=== PATIENT | female | born 1980 | race Caucasian/White ===

== ENCOUNTER 2020-04-30 14:06 | Outpatient (REF) | payer OTHER, SELFPAY ==
[2020-05-01 04:17] LABS: Syphilis Screen Nonreactive (Nonreactive)
[2020-05-01 04:25] LABS: HIV AB/AG Nonreactive (Nonreactive); HIV Num 1 0.31 S/CO (0.00-0.99); ~HepC Num1 0.07 S/CO (0.00-0.79); ~Hepatitis C Antibody Nonreactive (Nonreactive)
[2020-05-01 04:30] LABS: HBsAGNum1 0.16 S/CO (0.00-0.99); Hepatitis B Surface Antigen Negative (Negative)
[2020-05-01 09:09] LABS: BV Int Neg Control Negative (Negative); BV Int Pos Control Positive (Positive)
[2020-05-02 21:32] LABS: C. trachomatis RNA TMA NOT DETECTED (NOT DETECTED); N. gonorrhoeae RNA TMA NOT DETECTED (NOT DETECTED)
[2020-05-07 02:32] LABS: HPV mRNA E6/E7 rflx Not Detected (Not Detected)
== END 2020-04-30 14:07 | disposition home or self-care (01) ==
LOC: HO.LAB 14:06
PROVIDERS: PCP Internal Medicine; Visit Provider Advanced Practice Midwife
DX: Z01.419 Encounter for gynecological examination (general) (routine) without abnormal findings (principal); Z20.2 Contact with and (suspected) exposure to infections with a predominantly sexual mode of transmission; K62.3 Rectal prolapse; Z78.9 Other specified health status
CPT/HCPCS: 36415; 81003; 86780; 86803; 87340; 87389; 87480; 87491; 87510; 87591; 87624; 87660; 88142

== ENCOUNTER 2020-05-01 08:27 | Outpatient (REF) | payer OTHER, SELFPAY | END 2020-05-01 08:28 | disposition home or self-care (01) | LOC: HO.LAB 08:27 | PROVIDERS: Visit Provider Advanced Practice Midwife | DX: Z13.89 Encounter for screening for other disorder (principal) ==

== ENCOUNTER → 2020-05-13 10:37 | Outpatient (BNVA) | payer OTHER, SELFPAY | PROVIDERS: PCP Internal Medicine; Visit Provider Advanced Practice Midwife ==

== ENCOUNTER 2020-05-28 09:45 | Outpatient (REF) | payer OTHER, SELFPAY ==
[2020-05-29 08:22] LABS: BV Int Neg Control Negative (Negative); BV Int Pos Control Positive (Positive)
== END 2020-05-28 09:46 | disposition home or self-care (01) ==
LOC: HO.LAB 09:45
PROVIDERS: PCP Internal Medicine; Visit Provider Advanced Practice Midwife
DX: R35.0 Frequency of micturition (principal); L40.9 Psoriasis, unspecified; N89.8 Other specified noninflammatory disorders of vagina; F17.210 Nicotine dependence, cigarettes, uncomplicated
CPT/HCPCS: 81001; 81003; 87210; 87480; 87510; 87660; 99212

== ENCOUNTER → 2020-08-08 14:02 | Outpatient (BNVA) | payer OTHER, SELFPAY | PROVIDERS: Visit Provider Surgery | DX: M62.08 Separation of muscle (nontraumatic), other site (principal); K62.0 Anal polyp | CPT/HCPCS: 99202 ==

== ENCOUNTER 2021-04-07 10:28 | Outpatient (REF) | payer OTHER, SELFPAY ==
--- NOTE | ~2021-04-07 | US_ITS ---
EXAMINATION: US THYROID CLINICAL INFORMATION: Thyroid disorder. Asymmetrical thyroid. Trouble swallowing. COMPARISON: None TECHNIQUE: Linear transducer grayscale and color Doppler examination with attention to the region of the thyroid. FINDINGS: SIZE: Measurements of the thyroid lobes and nodules are given in sagittal, anteroposterior and transverse dimensions respectively. Right Thyroid Lobe: 5.5 x 1.5 x 2.0 cm, volume 8.6 mL. Parenchyma: The gland echotexture is homogeneous. Thyroid vascularity is increased. Left Thyroid Lobe: 4.6 x 1.3 x 1.4 cm, volume 4.4 mL. Parenchyma: The gland echotexture is homogeneous. Thyroid vascularity is increased. Isthmus: 0.3 cm in maximum AP dimension. Estimated total number of nodules greater than or equal to 1 cm: 1. Dynamic Balancer Set Up Worker nodules are described as follows: 1. Location: Left lower pole. Size: 1.3 x 0.7 x 0.9 cm, volume 0.4 mL. Nodule characteristics: Composition: Solid/almost completely solid (2). Echogenicity: Cannot be determined (1). Shape: Not taller than wide (0). Margins: Smooth (0). Echogenic Foci: Punctate echogenic foci (3). ACR TI-RADS total points: 6 ACR TI-RADS category: 4 2. Location: Right mid pole. Size: 0.8 x 0.7 x 0.7 cm, volume 0.2 mL. Nodule characteristics: Composition: Mixed cystic and solid (1). Echogenicity: Hyperechoic (1). Shape: Not taller than wide (0). Margins: Smooth (0). Echogenic Foci: None (0). ACR TI-RADS total points: 2 ACR TI-RADS category: 2 3. Location: Right lower pole. Size: 0.8 x 0.7 x 0.6 cm, volume 0.2 mL. Nodule characteristics: Composition: Mixed cystic and solid (1). Echogenicity: Hyperechoic (1). Shape: Taller than wide (3). Margins: Smooth (0). Echogenic Foci: None (0). ACR TI-RADS total points: 5 ACR TI-RADS category: 4 4. Location: Right lower pole. Size: 0.8 x 0.5 x 0.8 cm, volume 0.2 mL. Nodule characteristics: Composition: Mixed cystic and solid (1). Echogenicity: Hyperechoic (1). Shape: Not taller than wide (0). Margins: Ill-defined (0). Echogenic Foci: Punctate echogenic foci (3). ACR TI-RADS total points: 5 ACR TI-RADS category: 4 NODES: No lymphadenopathy is seen in the tissue surrounding the thyroid gland. US/US thyroid IMPRESSION: Bilateral thyroid nodules. According to TI RADS criteria, ultrasound follow-up as detailed below recommended. Ultrasound-guided fine-needle aspiration, followup ultrasound, no further follow up. * TR1 (0 point) and TR 2 (2 points): No FNA or follow up * TR3 (3 points): FNA if more than or equal to 2.5 cm in maximum dimension, followup ultrasound in 1, 3 and 5 years if 1.5 to 2.4 cm in maximum dimension. * TR4 (4-6 points): FNA if more than or equal to 1.5 cm in maximum dimension, followup ultrasound in 1, 2, 3 and 5 years if 1 to 1.4 cm in maximum dimension. * TR5 (more than or equal to 7 points): FNA if more than or equal to 1 cm in maximum dimension, followup ultrasound every year for 5 years if 0.5 to 0.9 cm in maximum dimension. * TR3, TR4 or TR5 nodules that are below the size threshold for follow up receive no follow up.
== END 2021-04-07 10:29 | disposition home or self-care (01) ==
LOC: HO.US 10:28
PROVIDERS: PCP Internal Medicine; Visit Provider Internal Medicine
DX: E07.9 Disorder of thyroid, unspecified (principal)
CPT/HCPCS: 76536

== ENCOUNTER 2022-03-31 12:25 | Outpatient (REF) | payer OTHER, SELFPAY ==
[2022-04-01 05:31] LABS: CT PCR NOT DETECTED (Not Detect.); NG PCR NOT DETECTED (Not Detect.)
== END 2022-03-31 12:26 | disposition home or self-care (01) ==
LOC: HO.LNP 12:25
PROVIDERS: PCP Internal Medicine; Visit Provider Obstetrics & Gynecology
DX: Z11.3 Encounter for screening for infections with a predominantly sexual mode of transmission (principal); N95.0 Postmenopausal bleeding
CPT/HCPCS: 87491; 87591; 99212

== ENCOUNTER 2022-04-22 15:37 | Outpatient (REF) | payer OTHER, SELFPAY ==
--- NOTE | ~2022-04-22 | US_ITS ---
EXAMINATION: US PELVIC AND TRANSVAGINAL CLINICAL INFORMATION: Postmenopausal bleeding. COMPARISON: None TECHNIQUE: Ultrasound of the pelvis is performed using both transabdominal and transvaginal transducers along with Doppler. Transvaginal imaging is performed due to inadequate visualization transabdominally. FINDINGS: UTERUS: The uterus is anteverted and measures 6.5 x 3.8 x 4.9 cm. The double wall endometrial thickness is 0.3 mm. The uterus is smooth in contour and has normal myometrial echogenicity. There is a 1 cm fibroid present in the dorsal surface. ADNEXA: Both ovaries are visualized. Bilateral simple ovarian cysts are present, the largest is 1.4 cm. There is normal color flow to the adnexa. There is no ovarian torsion. There is no pelvic ascites or fluid collection. Right ovary measures 2.1 x 1.8 x 2.0 cm for a volume of 3.9 mL. Left ovary measures 2.6 x 1.1 x 1.5 cm for a volume of 2.2 mL. US/US pelvic and transvaginal IMPRESSION: 1. Small 1 cm uterine fibroid. 2. Bilateral simple ovarian cysts. No followup is needed.
== END 2022-04-22 15:38 | disposition home or self-care (01) ==
LOC: HO.HMGCX 15:37
PROVIDERS: PCP Internal Medicine; Visit Provider Obstetrics & Gynecology
DX: N95.0 Postmenopausal bleeding (principal)
CPT/HCPCS: 76830; 76856

== ENCOUNTER 2022-07-03 09:58 | Outpatient (REF) | payer OTHER, SELFPAY ==
--- NOTE | ~2022-07-03 | US_ITS ---
EXAMINATION: US SOFT TISSUE NECK CLINICAL INFORMATION: Right neck swelling. COMPARISON: Ultrasound soft tissue head/neck thyroid dated 04/07/2021. TECHNIQUE: Ultrasound of the neck soft tissues is performed with high-frequency hernandez-scale imaging and color Doppler. FINDINGS: THYROID BED: Prior thyroidectomy. No residual thyroid tissue demonstrated in the thyroid bed. No cystic or solid nodules demonstrated in the thyroid bed. RIGHT NECK SOFT TISSUES: Scattered architecturally normal nodes are present. The nodes show normal fatty hilus, normal cortical thickness, and no cystic change or calcification. No abnormal color flow. The largest nodes are as follows: Level 2: 1.5 x 0.90 x 1.1 cm. It has fatty hilum. Normal dominik architecture. Level 2: 1.7 x 0.90 x 1.3 cm. It has fatty hilum. Normal dominik architecture. LEFT NECK SOFT TISSUES: Scattered architecturally normal nodes are present. The nodes show no fatty hilus, normal cortical thickness, and no cystic change or calcification. No abnormal color flow. The largest nodes are as follows: Level 2: 1.5 x 0.90 x 1.5 cm. Normal dominik architecture. US/US soft tiss head and/or neck IMPRESSION: 1. There are bilateral neck lymph nodes. The right neck lymph nodes appear normal. There is absent fatty hilum and lymph nodes with normal vascularity. 2. If clinically indicated further evaluation of the neck soft tissues and nodes may be performed with CT soft tissue neck with intravenous contrast.
== END 2022-07-03 09:59 | disposition home or self-care (01) ==
LOC: HO.HMGCX 09:58
PROVIDERS: PCP Internal Medicine; Visit Provider Internal Medicine
DX: R22.1 Localized swelling, mass and lump, neck (principal)
CPT/HCPCS: 76536

== ENCOUNTER 2022-08-19 11:51 | Outpatient (REF) | payer OTHER, SELFPAY | END 2022-08-19 11:52 | disposition home or self-care (01) | LOC: HO.LNP 11:51 | PROVIDERS: PCP Nurse Practitioner Family; Visit Provider Obstetrics & Gynecology | DX: N95.0 Postmenopausal bleeding (principal); D21.9 Benign neoplasm of connective and other soft tissue, unspecified | CPT/HCPCS: 58100; 88305 ==

== ENCOUNTER → 2022-09-22 10:39 | Outpatient (BNVA) | payer OTHER, SELFPAY | PROVIDERS: PCP Nurse Practitioner Family; Visit Provider Obstetrics & Gynecology | DX: N95.0 Postmenopausal bleeding (principal) | CPT/HCPCS: 99212 ==

== ENCOUNTER 2023-07-08 06:53 | Outpatient (AMB) | payer OTHER, SELFPAY ==
--- NOTE | 2023-07-08 07:15 | A.OFFPC_ITS ---
Intake Visit Reasons: discuss a referral/[phone] Allergies progesterone [Prometrium] Allergy (Unknown, Verified 07/08/23 07:35) vaginal bactirial infecction Medication List - Last Reconciled 07/08/23 by SUBHASH Hitchcock anastrozole 1 mg PO DAILY lidocaine 5% 1 appl topical TID PRN omeprazole 1 cap PO DAILY venlafaxine ER 75 mg PO DAILY Tobacco use date assessed: 10/21/22 HPI discuss a referral/[phone] HPI Details Pt currently has breast implants that were put in in January 2023 due to breast cancer. She reports that they are lumpy and uneven. Pt saw her plastic surgeon and was going to have a revision. She would like a second opinion, will refer. Pt c/o eye swelling and drainage. Recommended cetirizine up to 20mg bid. Denies fever, chills, and dizziness. [facility], [facility] Medical History Anal polyp Rectus diastasis Psoriasis History of placenta accreta Hx of ectopic Rectal prolapse Annual physical exam Ventral hernia without obstruction or gangrene Asthma Surgical History Hx of unilateral salpingectomy History of rectal surgery Hx of section Family History Mother Substance use disorder Other Family history of cancer in maternal grandmother Social History Housing: House Alcohol intake: current Alcohol intake frequency: a few times a month Patient Tobacco Use Status: Former Tobacco user Cigarette Packs Per Day: 0.5 e-Cigarette/Vaping Use: Currently Using Second Hand Smoke Exposure: No service: No Current occupational status: unemployed Sexual orientation: Straight/Heterosexual Gender identity: Female Cognitive needs: No Hearing needs: No Vision needs: No Female Reproductive History Menstrual Age of Menarche: 13 Questionnaire Thrive Questionnaire Date Thrive assessed: 08/26/21 FLORA-7 AMB Questionnaire FLORA-7 Date FLORA - 7 assessed: 08/26/21 Source: Developed by Drs. David L. Patricia Vogt Kurt Kroenke and colleagues, with an educational guerline from [employer]. Review of Systems Const Reports as per HPI Physical exam (Primary Care) Tobacco/Smoking Status: Tobacco use Status Tobacco use date assessed 10/21/22 07/08/23 07:20 Patient Tobacco Use Status Former Tobacco user 07/08/23 07:20 e-Cigarette/Vaping Use Currently Using 07/08/23 07:20 Thrive Assessment: Date of Thrive Assessment Date Thrive assessed 08/26/21 07/08/23 07:20 Const General: cooperative Orientation/consciousness: patient oriented x3 Neuro General: patient oriented x3 Psych Appearance: grossly normal Mental Status: mental status grossly normal Speech and movement: Clear speech present Affect: normal affect Attitude: cooperative Thought process: Normal thought process present Thought content: Normal thought content present Insight: Good insight present (Psych) Judgement: Good judgement present (Psych) Telehealth Telehealth Location of provider rendering services: practice address Location of patient: address on file Patient Identification confirmed using: Name, : Yes Telehealth method: video Patient verbally consented to treatment: Yes Patient verbally consented to billing insurance company: Yes Patient informed of any privacy concerns related to visit: Yes Minutes spent on Phone/Video with Pt.: 10 Assessment and Plan Assessment & Plan (1) H/O breast implant: Code(s): Z98.82 - Breast implant status Plan: Referred to plastic surgery Plan The patient agreed to the use of a medical claims manager for this encounter. Scribed for SUBHASH Martell by Cookie Morales medical claims manager, on 07/08/2023 at 07:15 EST. Orders: Referrals Plastic Surgery Referral Z98.82 - Breast implant status Coding Level of Care Code Tele Est Pt Level 3 (80336) Diagnoses H/O breast implant Z98.82
== END 2023-07-08 15:41 | disposition home or self-care (01) ==
LOC: HO.HMGC 06:53
PROVIDERS: PCP Nurse Practitioner Family; Visit Provider Nurse Practitioner Family
DX: T85.49XA Other mechanical complication of breast prosthesis and implant, initial encounter (principal); Z98.82 Breast implant status; Z85.3 Personal history of malignant neoplasm of breast
CPT/HCPCS: 99212

== ENCOUNTER 2024-08-21 15:43 | Outpatient (AMB) | payer MEDICARE, SELFPAY ==
--- NOTE | 2024-08-21 15:46 | A.OFFPC_ITS ---
Vital Signs 08/21/24 15:47 Height 4 ft 11 in Weight 135 lb BMI 27.3 BP 112/70 Blood Pressure Location Lt brachial Position Sitting Pulse 76 Pulse Source Pulse Oximeter Pulse Oximetry (%) 97 Oxygen Delivery Method Room Air Intake Visit Reasons: Breast reconstruction 09/07 Accompanied by: Self / Same As Patient Allergies progesterone [Prometrium] Allergy (Unknown, Verified 07/08/23 07:35) vaginal bactirial infecction Medication List - Last Reconciled 08/21/24 by Acosta Biggs [facility] albuterol sulfate 90 mcg/actuation inhalation anastrozole 1 mg PO DAILY venlafaxine ER 150 mg PO DAILY Tobacco use date assessed: 08/21/24 Dental Screening Dental Screen Date: 08/21/24 Did you have a dental visit in the last 12 months?: Yes Did you have a dental problem in the last 6 months where you did not have access to dental care?: No Was dental information given to patient?: Patient has dentist HPI Breast reconstruction 09/07 HPI Details Chief Complaint Desire for breast reconstruction following a mastectomy many years prior. History of Present Illness The patient is a 43-year-old female presenting for preoperative evaluation for breast reconstruction following a previous mastectomy, which was performed many years ago due to breast carcinoma. The initial surgical outcome was unsatisfactory, prompting her to seek corrective breast reconstruction surgery. This procedure is planned for mid-August. Furthermore, she has a history of rectal prolapse and requests consultation with a gastrointestinal specialist to explore potential therapeutic options (ongoing issue for years pt reported). There are no reports of fever, chills, chest pain, or shortness of breath reported during this visit. Social History Health Maintenance - Advised completion of laboratory tests in the near future. Review of Systems - Cardiovascular: Denies chest pain, dane rtness of breath. - Constitutional: Denies fever, chills. - Lymphatic: Denies lymphadenopathy. Physical Exam General: Cooperative, healthy appearing, comfortable, no acute distress and well developed Orientation: Patient oriented x3 Limitations: No limitations Head: Normal to inspection Ears: Hearing grossly normal bilaterally Nose: Normal external nose present Face and sinus: Normal facial exam Eyes: Appearance normal, both eyes and all related structures Neck: Normal visual inspection and Yes full ROM, no lymphadenopathy Respiratory: Normal respiratory effort and able to speak in complete sentences. Clear to auscultation bilaterally Cardiovascular: Regular rate and rhythm. Normal S1 and S2 GI: Normal to inspection. Soft to palpation and nontender Skin: No rashes or lesions noted Neuro: Patient oriented x3 Extremities: Normal to inspection Results - Tests: EKG performed today, results in dicate normal sinus rhythm. Plan The patient is scheduled for breast reconstruction surgery in mid-August, for which a normal EKG supports proceeding. She is encouraged to complete upcoming laboratory evaluations soon. Additionally, a referral to a gastrointestinal specialist for her rectal prolapse will be arranged for further assessment and management, ensuring that her focus remains on addressing both her surgical and gastrointestinal concerns. Discussion Notes I discussed with the patient the details surrounding her upcoming breast reconstruction, ensuring she is aware of the preoperative steps, including obtaining lab tests. The normal findings from today?s EKG olrenza well for surgical clearance. We reviewed her previous mastectomy outcomes, and she expressed her goals for reconstruction. I provided information on potential referrals for her history of rectal prolapse and assured that a GI referral will facilitate specialized management. Follow-up plans and reasons for early return if symptoms arise were discussed. Patient Instructions - Ensure to complete laboratory tests so on. - Attend scheduled plastics appointment for breast reconstruction in mid-August. - Follow up with the gastrointestinal sp ecialist as referred. - Return for care if experiencing new or worsening symptoms. [facility] Medical History Carcinoma of right breast Anal polyp Rectus diastasis Psoriasis History of placenta accreta Hx of ectopic Rectal prolapse Annual physical exam Ventral hernia without obstruction or gangrene Asthma Surgical History Hx of unilateral salpingectomy History of rectal surgery Hx of section Family History Mother Substance use disorder Other Family history of cancer in maternal grandmother Social History Housing: House Alcohol intake: current Alcohol intake frequency: a few times a month Patient Tobacco Use Status: Former Tobacco user Cigarette Packs Per Day: 0.5 e-Cigarette/Vaping Use: Currently Using Second Hand Smoke Exposure: No service: No Current occupational status: unemployed Sexual orientation: Straight/Heterosexual Gender identity: Female Cognitive needs: No Hearing needs: No Vision needs: No Female Reproductive History Menstrual Age of Menarche: 13 Questionnaire PHQ-9 Over the last 2 weeks, how often have you been bothered by any of the following problems? 1. Little interest or pleasure in doing things: not at all 2. Feeling down, depressed, or hopeless: not at all 3. Trouble falling or staying asleep, or sleeping too much: nearly every day 4. Feeling tired or having little energy: nearly every day 5. Poor appetite or overeating: not at all 6. Feeling bad about yourself - or that you are a failure or have let yourself or your family down: not at all 7. Trouble concentrating on things, such as reading the newspaper or watching television: several days 8. Moving or speaking so slowly that other people could have noticed. Or the opposite - being so fidgety or restless that you have been moving around a lot more than usual: not at all 9. Thoughts that you would be better off or of hurting yourself in some way: not at all Total score: 7 Depression Screening Interpretation: Negative Depression Screening Done: Yes 98844 - PHQ-9 Billing: Yes Source: Developed by Drs. David Vogt, Patricia Short, Brandon Grajeda and colleagues, with an educational guerline from [employer]. Thrive Questionnaire Date Thrive assessed: 08/21/24 I am a: Patient What is your living situation today?: I have a steady place to live Within the past 12 months, did the food you bought not last and you didn't have the money to get more?: Never true Within the past 12 months, did you worry whether your food would run out before you got money to buy more?: Never true Do you have trouble paying for medicines?: No Do you have trouble getting transportation to medical appointments?: No Do you have trouble paying your heating and electricity bill?: No Do you have trouble taking care of your child, family member or friend?: No Do you have trouble with day-to-day activities such as bathing, preparing meals, shopping, managing finances, etc.?: No Are you currently unemployed and looking for a job?: Yes Are you interested in more education?: No Please select the resources that you would like help with: None Currently or been in a relationship where the following occur: No concerns reported THRIVE Score: 0 AUDIT C Alcohol Use Questionnaire (AUDIT-C) 1. How often do you have a drink containing alcohol?: Never 3. How often do you have six or more drinks on one occasion?: Never Total Score: 0 Score Reviewed/Action Taken: Yes FLORA-7 AMB Questionnaire FLORA-7 Date FLORA - 7 assessed: 08/21/24 Feeling nervous, anxious, or on edge: 2 = More than half the days Not being able to stop or control worryin = Several days Worrying too much about different things: 1 = Several days Trouble relaxin = Several days Being so restless that it is hard to sit still: 0 = Not at all Becoming easily annoyed or irritable: 1 = Several days Feeling afraid as if something awful might happen: 0 = Not at all Total FLORA-7 score (0-4 normal; 5-9 mild; 10-14 moderate; 15-21 severe): 6 Source: Developed by Drs. David Vogt, Patricia Short, Brandon Grajeda and colleagues, with an educational guerline from [employer]. FLORA-7 Assessment Billing FLORA-7 Assessment Tool: FLORA-7 Assessment 48517 Physical exam (Primary Care) Vital Signs: Last Vital Signs Pulse 76 08/21/24 15:47 BP 112/70 08/21/24 15:47 Pulse Ox 97 08/21/24 15:47 Oxygen Delivery Method Room Air 08/21/24 15:47 BMI result Body Mass Index 27.3 Tobacco/Smoking Status: Tobacco use Status Tobacco use date assessed 08/21/24 08/21/24 15:57 Patient Tobacco Use Status Former Tobacco user 08/21/24 15:48 e-Cigarette/Vaping Use Currently Using 08/21/24 15:48 PHQ-9: PHQ-9 Score PHQ-9: Total score 7 08/21/24 16:19 Depression Screening Interpretation: Negative Thrive Assessment: Date of Thrive Assessment Date Thrive assessed 08/21/24 08/21/24 15:57 Currently or been in a relationship where the following occur: No concerns reported Immunizations Boostrix Tdap 2.5 Lf unit-8 mcg-5 Lf/0.5 mL intramuscular syringe Performing Provider: Eric Glogowski, [employer] Performing Location: [facility] Administered by: Messi Quezada CMA on 08/21/24 16:32 Dose Route Admin Location Dispensed Lot Number Expiration Date [place] Turnaround Engineer 0.5 mL IM Right Deltoid 0.5 mL [id number] 11/03/26 [id number] Together [id number] 2 VIS Given Date VIS Provided VIS Publication Date 08/21/24 Single Vaccine 20 Eligibility Eligibility Date Funding Source Not [facility] Eligible 08/21/24 Private Coding Level of Care Code Est Pt Prev Care 40-64y(85994) Diagnoses Pre-op evaluation Z01.818 Rectal prolapse K62.3 Additional Codes FLORA-7 Assessment Billing - FLORA-7 Assessment Tool: FLORA-7 Assessment 98788 ([id number]) PHQ-9 - 18680 - PHQ-9 Billing: Yes ([id number]) Assessment & Plan Assessment & Plan (1) Pre-op evaluation: Code(s): Z01.818 - Encounter for other preprocedural examination Category: Medical (2) Rectal prolapse: Code(s): K62.3 - Rectal prolapse Category: Medical Plan . Orders: Orders Complete Blood Count Auto Diff Today Z01.818 - Encounter for other preprocedural examination UA CC w/rflx Micro + Cult Today Z01.818 - Encounter for other preprocedural examination Lipid Panel Today Z01.818 - Encounter for other preprocedural examination TSH reflex Free T4 Today Z01.818 - Encounter for other preprocedural examination Comprehensive [place]. Panel Fast Today Z01.818 - Encounter for other preprocedural examination TDaP Immunization Today Z23 - Encounter for immunization Referrals Gastroenterology Referral K62.3 - Rectal prolapse
[2024-08-21 15:47] VITALS: BP 112/70; PULSE 76; O2SAT 97; BMI 27.3
--- OUTSIDE RECORDS SUMMARY | 2024-08-21 18:30 | XMS_ITS | Data Portability ---
Author Organization [employer], [facility], [facility] Address [address] [place] [phone] Assessment No assessment recorded. Plan of Treatment Reminders Order Date Submit Date Provider Last Modified By Organization Details Last Modified Time Details Appointments None record ed. Lab None record ed. Referral None record ed. Procedures None record ed. Surgeries None record ed. Imaging None record ed. Medication Orders None record ed. Patient TargetsNo targets recorded. Patient Instructions Encounter Date Encounter Id Patient Instructions Last Modified By Organization Details Last Modified Time 01/17/2018 [id number] skin cancer prevention: care instructions [email or web address] Not available 01/19/2018 08:21:52 A healthy lifestyle: care instructions [email or web address] Not available 01/19/2018 08:21:52 Reason for Referral None Reported. Problems No Known Problems Procedures Surgical History Date Name Laterality Status Provider Name and Address Organization Details Recorded Time 01/17/2018 Biopsy-Sha ve completed Erika Barroso [employer] 01/17/2018 16:51:04 Imaging Results None recorded. Procedure Notes None recorded. Medical Equipment None Reported. Allergies Allergen ID Allergen Name Allergen Category Reaction Reaction Severity Criticality Documentation Date Start Date Code Code System Note Provider Name and Address Organization Details Recorded Time 58977 progester one medicatio n Not available Not available Not available 01/17/2018 8727 RxNorm Julissa arellano [employer] 8 16:18:33 Medications Name Sig Start Date Stop Date Status Note LastModified by Organization Details LastModified Time Prescription - Prior Authorization Request active Not Available Not Available Not Available fluconazole 150 mg tablet active Not Available Not Available No t Available valacyclovir 1 gram tablet active Not Available Not Available Not Available metronidazole 0.75 % (37.5 mg/5 gram) vaginal gel active Not Available Not Available Not Available metronidazole 500 mg tablet active Not Available Not Availabl e Not Available lidocaine HCl 2 % mucosal jelly active Not Available Not Availa ble Not Available hydroxyzine HCl 25 mg tablet Take 1 tab po QID prn for itch. active Not Available Not Available No t Available calcipotriene 0.005 % scalp solution Apply to scalp QHS x 6-8 hrs- APply 2nd active Not Available Not Available No t Available estradiol 0.01% (0.1 mg/gram) vaginal cream active Not Available Not Availabl e Not Available fluocinolone 0.01 % scalp oil and shower cap Apply to scalp QHS x 6-8 hrs - Apply 1st active Not Available Not Available No t Available Vitals Date Recorded Body height Body mass index (BMI) Body weight Provider Name and Address Organization Details Last Updated DateTime 01/17/2018 152.4 cm 26.4 kg/m2 23292.97 g Julissa Polo MA [facility] 01/17/2018 16:18:17 Social History Question Answer Notes LastModified by Organizat ion Details LastModified Time Tobacco Smoking Status Former Smoker Julissa arellano [employer] [facility] 01/17/2018 16:19:01 What Is Your Level Of Alcohol Consumption? Moderate [email or web address] Information not available 01/17/2018 What Is Your Level Of Caffeine Consumption? Moderate [email or web address] Information not available 01/17/2018 Marital Status [email or web address] Informati on not available 01/17/2018 What Was The Date Of Your Most Recent Tobacco Screening? 01/17/2018 Information not available 11/16/2018 How Much Tobacco Do You Smoke? No [email or web address] Information not available 01/17/2018 Has Tobacco Cessation Counseling Been Provided? Yes [email or web address] Information not available 01/17/2018 On What Date Was Tobacco Cessation Counseling Provided? 01/17/2018 [email or web address] Information not available 01/17/2018 Sex: Unknown Functional Status None recorded. Mental Status None recorded. Family History Nothing Reported Notes:patient was adopted. Medical History Condition Response Cancer Type N Neurological Disease N Hives N Migraines N Herpes N Lung Disease N Thyroid N X-Ray Therapy N Keloids N Anemia N Coronary Heart Disease N Hay Fever N Diabetes N Aids Risk N Arthritis N Eczema Y Asthma N Hair Loss N Excessive Sweating N Control N Lupus N Bleeding Diatheses N Psoriasis N Seizures N Skin Cancer N Menst. Irreg. N Hepatitis N Recent Weight Gain N Headaches N Hypertension N Kidney Disease N Gynecological HistoryNo gynecological history recorded. Obstetrics History GPAL:G 0 P 0 0 0 0 Past Encounters Encounter ID Performer Location Encounter Start Date Encounter Closed Date Diagnosis/Indication Diagnosis SNOMED-CT Code Diagnosis ICD10 Code Diagnosis Note [id number] Laura Cortez MD MAIN OFFICE [address] [place] [address] [address] [place] [address] 01/17/2018 15:50:59 01/17/2018 16:52:32 Psoriasis vulgaris 582346227 L40.0 Eczema 49247211 L30.9 Neoplasm o f uncertain behavior of skin 31163164 D48.5 Health Concerns Section Related Observation LastModified by Organization Detai ls LastModified Time None Recorded Concern Status LastModified by Organization Details LastModified Time None Recorded Advance Directives Directive None Recorded Payers Encounter Date Sequence Insurance Name Policy Number Policy Henry Covered Member ID Henry Member ID Guarantor Name 01/17/2018 1 [employer] [facility] - DIRECT - FOND [place] ZERO (HMO) Nhan Watts [id number] Nhan Watts Notes Date Note Type Note Provider Name a nd Address Organization Details Recorded Time 01/17/2018 text/html Today, the patient was seen, examined, and treated by Dr. Cortez. The patient presents to the office with complaint of itchy, flaky, and scaly scalp that has been present for about one year. She reports no treatment was ever given. She states that she was diagnosed with eczema and was told to apply Head and Shoulders shampoo. She states her father has a history of psoriasis on his body. After evaluating the patient, the provider discussed all medical and treatment options. The patient consents to having a shave biopsy to the left parietal scalp to rule out eczema versus psoriasis. The patient was advised to start Atarax 25 mg q.i.d. p.r.n., [place]-Smoothe/F S solution at bedtime six to eight hours, and Dovonex solution at bedtime six to eight hours. The patient was advised to follow up in two weeks. Laura Cortez MD [address] [facility], [address],[facility] [place], [address], [place] KATHARINA [facility] 01/19/2018 08:21:55 OBGyn Episode No OBEpisode recorded.
--- OUTSIDE RECORDS SUMMARY | 2024-08-21 18:30 | XMS_ITS | Clinical Summary ---
Author Organization [facility] Address [address] [place] [address] Care Team Providers Care Director Of Architecture Name Role Phone Unavailable Primary Care Provider Unavailabl e Social History Tobacco Use Types Packs/Day Years Used Date Smoking Tobacco: Never Assessed Comments Unknown Sex and Gender Information Value Date Recorded Sex Assigned at Not on file Legal Sex Female 4:58 PM EDT Gender Identity Not on file Sexual Orientation Not on file Plan of Treatment Health Maintenance Due Date Last Done Comments Hepatitis C Screening 1980 Pap Smear 1996 DTaP/Tdap/Td (1 - Tdap) 1998 Hep B (1 of 3 - 19+ 3-dose series) 11/06/1999 Mammogram/Breast Imaging 2020 COVID-19 Vaccine (2023-2 5 season) 2023 Influenza (#1) 2023 Zoster (Shingrix) (1 of 2) 2030 HPV Vaccine Aged Out No longer eligi ble based on patient's age to complete this topic Hep A Aged Out No longer eligi ble based on patient's age to complete this topic Hib Aged Out No longer eligi ble based on patient's age to complete this topic Meningococcal ACWY Aged Out No longer eligible based on patient's age to complete this topic Pneumococcal Aged Out No longer eligi ble based on patient's age to complete this topic
--- OUTSIDE RECORDS SUMMARY | 2024-08-21 18:30 | XMS_ITS ---
Author Name [facility] Organization Unknown Encounters Encounter Type Encounter Reason Primary Diagnosis Location Date Ambulatory [facility] 10/06/2023
--- OUTSIDE RECORDS SUMMARY | 2024-08-21 18:30 | XMS_ITS | Clinical Summary ---
Author Organization [facility], Address [address] [place] [address] Phone Care Team Providers Care Communications Instructor Name Role Phone Nico Grimaldo MD Primary Care Provider [phone] Allergies Active Allergy Reactions Criticality Noted Date Comments Avocado Low 08/21/2021 Other reaction(s): roof of mouth itchy Banana Low 08/21/2021 Other reaction(s): roof of mouth itchy Dust Mite Extract Other (see comments) High 03/27/20 21 Watery eyes / sneezing Mixed Ragweed High 08/21/2021 Molds & Smuts High 08/21/2021 Other High 03/27/2021 Environmental allergies- Watery eyes / sneezing walnuts- roof of mouth itchy Lip swelling- Nathen dressing Cats/dogs -Watery eyes / sneezing Grass-Watery eyes / sneezing Mildew ??Watery eyes / sneezing Pollen Extract High 08/21/2021 Progesterone Other (see comments) High 03/27/2021 Caused Bacterial infection per patient Other reaction(s): vaginal bacteria infection Medications fluticasone (FLONASE) 50 MCG/ACT nasal spray 1 Active acetaminophen (TYLENOL 8 HOUR) 650 MG 8 hr tablet Take 1,300 mg by mouth 2 Active anastrozole (ARIMIDEX) 1 MG chemo tablet 2 Active colestipol (COLESTID) 1 g tablet 1 (one) time each day if needed 2 Active diphenoxylate-a tropine (LOMOTIL) 2.5-0.025 MG per tablet TAKE 2 TABLETS BY MOUTH FOUR TIMES DAILY NEEDED FOR LOOSE STOOLS 2 Active ibuprofen (ADVIL,MOTRIN) 600 MG tablet TAKE 1 TABLET BY MOUTH THREE TIMES DAILY FOR 7 DAYS NEEDED FOR MILD PAIN 2 Active lidocaine (XYLOCAINE) 5 % ointment APPLY TOPICALLY TO THE AFFECTED AREA THREE TIMES DAILY APPLY TO PAINFUL AREA NEEDED 2 Active LORazepam (ATIVAN) 0.5 MG tablet Take 0.5 mg by mouth 2 Active omeprazole OTC (PriLOSEC OTC) 20 MG EC tablet Take 20 mg by mouth 1 Active amoxicillin-cla vulanate (AUGMENTIN) 875-125 MG per tablet 2 Active Active Problems Problem Noted Date Diagnosed Date Smoker 08/20/2021 Anxiety 03/27/2021 Irritable bowel syndrome 03/27/2021 Acid reflux 03/27/2021 Asthma 03/27/2021 Carcinoma in situ of breast 03/25/2021 Overview (03/25/2021): RIGHT Social History Tobacco Use Types Packs/Day Years Used Date Smoking Tobacco: Every Day Cigarettes Smokeless Tobacco: Never Tobacco Cessation:Ready to Q uit: Yes; Counseling Given: Yes Alcohol Use Standard Drinks/Week Comments Yes 5 (1 standard drink = 0.6 oz pur e alcohol) Comments Unknown Sex and Gender Information Value Date Recorded Sex Assigned at Not on file Legal Sex Female 1:30 PM EST Gender Identity Not on file Sexual Orientation Not on file Last Filed Vital Signs Vital Sign Reading Time Taken Comments Blood Pressure 125/82 08/22/2021 9:06 AM EDT Pulse 96 08/22/2021 9:06 AM EDT Temperature 36.9 ??C (98.5 ??F) 08/22/2021 9:06 AM ED T Respiratory Rate 15 08/22/2021 9:06 AM EDT Oxygen Saturation 98% 08/22/2021 9:06 AM EDT Inhaled Oxygen Concentration - - Weight 52.6 kg (116 lb) 08/22/2021 9:06 AM EDT Height 149.9 cm (4' 11 ) 08/22/2021 9:06 AM EDT Body Mass Index 23.43 08/22/2021 9:06 AM EDT Plan of Treatment Health Maintenance Due Date Last Done Comments Hepatitis B Vaccine (1 of 3 - 19+ 3-dose series) 11/05 Pneumococcal Vaccine: Peds ( 0 to 5 Years) and At-Risk Patients (6 to 49 Years) (1 of 2 - PCV) 11/06/1999 Influenza Vaccine (Season Ended) 2024 Insurance [facility] Care Teams Communications Instructor Relationship Specialty Start Date End Date Nico Grimaldo MD [address] [facility] [place] [address] PCP - General Internal Medicine 03/26/21
== END 2024-08-21 16:29 | disposition home or self-care (01) ==
PROVIDERS: PCP Nurse Practitioner Family; Visit Provider Nurse Practitioner Family
DX: K62.3 Rectal prolapse (principal); Z01.818 Encounter for other preprocedural examination; Z23 Encounter for immunization

== ENCOUNTER → 2024-08-21 15:43 | Outpatient (BNVA) | payer OTHER, SELFPAY | PROVIDERS: PCP Nurse Practitioner Family; Visit Provider Nurse Practitioner Family | DX: Z01.818 Encounter for other preprocedural examination (principal); Z23 Encounter for immunization; K62.3 Rectal prolapse | CPT/HCPCS: 90471; 90715; 96127; 99212 ==

== ENCOUNTER 2024-08-30 09:22 | Outpatient (REF) | payer OTHER, MEDICARE, SELFPAY ==
--- OUTSIDE RECORDS SUMMARY | 2024-08-30 10:07 | XMS_ITS | Clinical Summary ---
Author Organization [facility], Address [address] [place] [address] Phone Care Team Providers Care Lace Paper Machine Operator Name Role Phone Nico Grimaldo MD Primary Care Provider [phone] Allergies Active Allergy Reactions Criticality Noted Date [...] 11/06/1999 Influenza Vaccine (Season Ended) 2024 Insurance [facility] Care Teams Lace Paper Machine Operator Relationship Specialty Start Date End Date Nico Grimaldo MD 1961 [facility] [place] [address] PCP - General Internal Medicine 03/26/21
--- OUTSIDE RECORDS SUMMARY | 2024-08-30 10:07 | XMS_ITS | Data Portability ---
Author Organization [facility], [facility], [facility] Address [address] [place] [phone] Assessment No assessment recorded. Plan of Treatment [...] By Organization Details Last Modified Time 01/17/2018 [id number] skin cancer prevention: care instructions [email or web address] Not available 01/19/2018 08:21:52 A healthy lifestyle: care instructions [email or web address] Not available 01/19/2018 08:21:52 Reason for Referral None Reported. Problems No Known Problems Procedures Surgical History Date Name Laterality Status Provider Name and Address Organization Details Recorded Time 01/17/2018 Biopsy-Sha ve completed Erika Barroso [employer] 01/17/2018 16:51:04 Imaging Results None recorded. Procedure Notes None recorded. Medical Equipment None Reported. Allergies Allergen ID Allergen Name Allergen Category Reaction Reaction Severity Criticality Documentation Date Start Date Code Code System Note Provider Name and Address Organization Details Recorded Time 99136 progester one medicatio n Not available Not available Not available 01/17/2018 8727 RxNorm Julissa arellano [employer] 8 16:18:33 Medications Name Sig Start Date [...] Updated DateTime 01/17/2018 152.4 cm 26.4 kg/m2 15496.97 g Julissa Polo MA [facility] 01/17/2018 16:18:17 Social History Question Answer Notes LastModified by Organizat ion Details LastModified Time Tobacco Smoking Status Former Smoker Julissa arellano [employer] [facility] 01/17/2018 16:19:01 What Is Your Level Of Alcohol Consumption? Moderate [email or web address] Information not available 01/17/2018 What Is Your Level Of Caffeine Consumption? Moderate Information not available 01/17/2018 Marital Status [email or web address] Informati on not available 01/17/2018 What Was The Date Of Your Most Recent Tobacco Screening? 01/17/2018 Information not available 11/16/2018 How Much Tobacco Do You Smoke? No [email or web address] Information not available 01/17/2018 Has Tobacco Cessation Counseling Been Provided? Yes [email or web address] Information not available 01/17/2018 On What Date Was Tobacco Cessation Counseling Provided? 01/17/2018 [email or web address] Information not available 01/17/2018 Sex: Unknown Functional Status None recorded. Mental Status None recorded. Family History Nothing Reported Notes:patient was adopted. Medical History Condition Response Cancer Type N Neurological Disease N Hives N Migraines N Herpes N Lung Disease N Thyroid N X-Ray Therapy N Anemia N Keloids N Coronary Heart Disease N Hay Fever N Aids Risk N Diabetes N Arthritis N Eczema Y Hair Loss N Asthma N Control N Excessive Sweating N Lupus N Bleeding Diatheses N Seizures N Psoriasis N Skin Cancer N Menst. Irreg. N Hepatitis N Recent Weight Gain N Headaches N Hypertension N Kidney Disease N Gynecological HistoryNo gynecological history recorded. Obstetrics History GPAL:G 0 P 0 0 0 0 Past Encounters Encounter ID Performer Location Encounter Start Date Encounter Closed Date Diagnosis/Indication Diagnosis SNOMED-CT Code Diagnosis ICD10 Code Diagnosis Note [id number] Laura Cortez MD MAIN OFFICE [address] [place] [address] [address] [place] [address] 01/17/2018 15:50:59 01/17/2018 16:52:32 Psoriasis vulgaris 577404562 L40.0 Eczema 45189831 L30.9 Neoplasm o f uncertain behavior of skin 43211834 D48.5 Health Concerns Section Related Observation LastModified by Organization Detai ls LastModified Time None Recorded Concern Status LastModified by Organization Details LastModified Time None Recorded Advance Directives Directive None Recorded Payers Encounter Date Sequence Insurance Name Policy Number Policy Henry Covered Member ID Henry Member ID Guarantor Name 01/17/2018 1 [employer] [facility] - DIRECT - [place] ZERO (HMO) Nhan Watts [id number] hNan Watts Notes Date Note Type Note Provider [...] to start Atarax 25 mg q.i.d. p.r.n., [place]-Smoothe/F S solution at bedtime six to eight hours, and Dovonex solution at bedtime six to eight hours. The patient was advised to follow up in two weeks. Laura Cortez MD [address] [facility], [address],[facility] [place], [address], [place] KATH[facility] [facility] 01/19/2018 08:21:55 OBGyn Episode No OBEpisode recorded.
--- OUTSIDE RECORDS SUMMARY | 2024-08-30 10:07 | XMS_ITS | Clinical Summary ---
Author Organization [facility] Address [address] [place] [address] Care Team Providers Care Hospice Liaison Name Role Phone Unavailable Primary Care Provider [...] COVID-19 Vaccine (2023-2 5 season) 2023 Influenza (Season Ended) 2024 Zoster (Shingrix) (1 of 2) 2030 HPV [...]
[2024-08-30 13:40] LABS: MANUAL DIFF FLAG NO
[2024-08-30 13:58] LABS: Basophils Absolute Auto 0.1 X10*3/uL (0.0-0.2); Basophils Percent Auto 0.9 % (0-2); Eosinophils Absolute Auto 0.3 X10*3/uL (0.0-0.4); Hematocrit 44.9 % (37.0-47.0); Hemoglobin 14.7 g/dl (12.0-16.0); Imm Gran Abs Auto 0.04 X10*3/uL (0.00-0.03); Imm Gran Pct Auto 0.5 % (0.0-0.4); Lymphocytes Percent Auto 26.7 % (20-40); Mean Corpuscular HGB Conc 32.7 g/dl (31.0-35.0); Mean Corpuscular Hemoglobin 28.8 pg (27.0-33.0); Mean Corpuscular Volume 87.9 fL (80.0-98.0); Mean Platelet Volume 11.2 fL (9.4-12.3); Monocytes Absolute Auto 0.5 X10*3/uL (0.1-1.2); Monocytes Percent Auto 6.1 % (2-11); Neutrophils Absolute Auto 4.7 x10*3/uL (2.0-8.3); Neutrophils Percent Auto 61.8 % (45-73); Platelet Count 276 X10*3/uL (160-400); Red Blood Count 5.11 X10*6/uL (4.20-5.50); Red Cell Distribution Width 12.9 % (11.0-16.0); White Blood Count 7.5 X10*3/uL (4.8-10.8)
[2024-08-30 14:11] LABS: Alanine Aminotransferase 36 U/L (0-31); Albumin Level 4.4 g/dL (3.5-5.0); Alkaline Phosphatase 77 U/L (39-117); Anion Gap 12 (12-20); Aspartate Amino Transferase 36 U/L (5-31); Bilirubin Total 0.4 mg/dL (0.0-1.0); Blood Urea Nitrogen 14 mg/dL (9-16); Calcium 9.5 mg/dL (8.4-10.2); Carbon Dioxide 24 mmol/L (22-29); Chloride 106 mmol/L (96-108); Cholesterol 240 mg/dL (<200); Estimated Glomerular Filt Rate > 60; Glucose Fasting 87 mg/dL (60-99); HDL Cholesterol 67 mg/dL (>40); LDL Cholesterol Calculated 155 mg/dL (<100); Sodium 138 mmol/L (135-145); Total Protein 7.8 g/dL (6.5-8.0); Triglycerides 93 mg/dL (<150)
[2024-08-30 14:30] LABS: TSH reflex Free T4 0.91 uIU/mL (0.32-4.0)
== END 2024-08-30 09:23 | disposition home or self-care (01) ==
LOC: HO.HMGCLDS 09:22
PROVIDERS: PCP Nurse Practitioner Family; Visit Provider Nurse Practitioner Family
DX: Z01.818 Encounter for other preprocedural examination (principal); R74.8 Abnormal levels of other serum enzymes; Z13.29 Encounter for screening for other suspected endocrine disorder
CPT/HCPCS: 36415; 80053; 80061; 84443; 85025